=== PATIENT | female | born 1980 | race Caucasian/White ===

== ENCOUNTER 2017-08-29 22:10 | Emergency (ER) | payer OTHER ==
[2017-08-29 22:19] VITALS: BP 122/58; PULSE 109; TEMP 98; BMI 32.5
--- NOTE | 2017-08-29 22:44 | PDOC ---
History of Present Illness - General Chief Complaint: Edema Stated Complaint: SWOLLEN GLANDS Time Seen by Provider: 08/29/17 22:34 History Source: Patient Exam Limitations: No Limitations - History of Present Illness Initial Comments: 08/29/17 22:49 36-year-old female with no medical history presents to the emergency department complaining of swelling to the left cervical glands with subjective fever 3 days. Patient was seen at the urgent care center 3 days ago. Patient had strep and mono tested and were both negative. Patient was placed on Ceftin and was told to take an NSAID. Patient presents today for a second opinion. Patient states patient denies headache, dizziness, lightheadedness, nausea, vomiting, chills, sore throat, chest pain, shortness of breath. Past History - Past Medical History Allergies/Adverse Reactions: Allergies Allergy/AdvReac Type Severity Reaction Status Date / Time No Known Allergies Allergy Verified 08/29/17 22:15 Home Medications: Ambulatory Orders Cefdinir [Omnicef Suspension] 250 mg PO ASDIR 08/29/17 COPD: No - Suicide/Smoking/Psychosocial Hx Smoking Status: Yes Smoking History: Current every day smoker Number of Cigarettes Smoked Daily: 10 Information on smoking cessation initiated: No Review of Systems - Review of Systems Able to Perform ROS?: Yes Comments:: 08/29/17 22:50 CONSTITUTIONAL: Absent: fever, chills, diaphoresis, generalized weakness, malaise, loss of appetite HEENT: left cervical glands/swollen Absent: rhinorrhea, nasal congestion, throat pain, throat swelling, difficulty swallowing, mouth swelling, ear pain, eye pain, visual Changes CARDIOVASCULAR: Absent: chest pain, loss of consciousness, palpitations, irregular heart rate, peripheral edema RESPIRATORY: Absent: cough, shortness of breath, dyspnea with exertion, orthopnea, wheezing, stridor, hemoptysis GASTROINTESTINAL: Absent: abdominal pain, abdominal distension, nausea, vomiting, diarrhea, constipation, melena, hematochezia GENITOURINARY: Absent: dysuria, frequency, urgency, hesitancy, hematuria, flank pain, genital pain MUSCULOSKELETAL: Absent: myalgia, arthralgia, joint swelling SKIN: Absent: rash, itching, pallor HEMATOLOGIC/IMMUNOLOGIC: Absent: easy bleeding, easy bruising, lymphadenopathy, frequent infections ENDOCRINE: Absent: unexplained weight gain, unexplained weight loss, heat intolerance, cold intolerance NEUROLOGIC: Absent: headache, focal weakness or paresthesias, dizziness, unsteady gait, seizure, mental status changes, bladder or bowel incontinence PSYCHIATRIC: Absent: anxiety, depression, suicidal or homicidal ideation, hallucinations. Is the patient limited German proficient: No *Physical Exam - Vital Signs Last Vital Signs Temp Pulse Resp BP Pulse Ox 98 F 109 H 18 122/58 99 08/29/17 22:16 08/29/17 22:16 08/29/17 22:16 08/29/17 22:16 08/29/17 22:16 - Physical Exam Comments: 08/29/17 22:50 GENERAL: Well developed, well nourished. Awake and alert. No acute distress. HEENT: Normocephalic, atraumatic. PERRLA, EOMI. No conjunctival pallor. Sclera are non- icteric. Moist mucous membranes. Oropharynx is clear. NECK: +swelling to cervical glands/left Supple. Full ROM. No JVD. Carotid pulses 2+ and symmetric, without bruits. No thyromegaly. No lymphadenopathy. CARDIOVASCULAR: Regular rate and rhythm. No murmurs, rubs, or gallops. Distal pulses are 2+ and symmetric. PULMONARY: No evidence of respiratory distress. Lungs clear to auscultation bilaterally. No wheezing, rales or rhonchi. ABDOMINAL: Soft. Non-tender. Non-distended. No rebound or guarding. No organomegaly. Normoactive bowel sounds. MUSCULOSKELETAL Normal range of motion at all joints. No bony deformities or tenderness. No CVA tenderness. EXTREMITIES: No cyanosis. No clubbing. No edema. No calf tenderness. SKIN: Warm and dry. Normal capillary refill. No rashes. No jaundice. NEUROLOGICAL: Alert, awake, appropriate. Cranial nerves 2-12 intact. No deficits to light touch and temperature in face, upper extremities and lower extremities. No motor deficits in the in face, upper extremities and lower extremities. Normoreflexic in the upper and lower extremities. Normal speech. Toes are down- going bilaterally. Gait is normal without ataxia. *DC/Admit/Observation/Transfer Diagnosis at time of Disposition: Glands swollen - Discharge Dispostion Disposition: HOME Condition at time of disposition: Stable Admit: No - Referrals Referrals: Ruthy Hyde MD [Primary Care Provider] - Taisha Josue MD [Staff Physician] - - Patient Instructions Printed Discharge Instructions: DI for Lymphangitis-Adult Additional Instructions: Take Motrin as needed every 8 hours Continue your antibotics as prescribed at the Urgent care Return to the ER for severe/persistent/worsening symptoms Follow up with Infectious disease within 48 hours - Post Discharge Activity
== END 2017-08-29 22:46 | disposition home or self-care (01) ==
LOC: JERFT 22:10
DX: R59.0 Localized enlarged lymph nodes (principal)
CPT/HCPCS: 99281-25

== ENCOUNTER 2023-05-27 16:52 | Emergency (ER) | payer OTHER ==
[2023-05-27 16:59] VITALS: BP 116/72; PULSE 95; RESP 18; TEMP 98.3; BMI 29.5
== END 2023-05-27 18:50 | disposition left against medical advice (07) ==
LOC: JER 16:52
DX: F41.9 Anxiety disorder, unspecified (principal); R06.02 Shortness of breath; R42 Dizziness and giddiness; R00.2 Palpitations
CPT/HCPCS: 93005; 93010

== ENCOUNTER 2023-11-08 21:28 | Emergency (ER) | payer OTHER ==
[2023-11-08 21:49] VITALS: BP 107/62; PULSE 106; RESP 18; TEMP 98.2; BMI 32.5
[2023-11-08] MEDS ORDERED: KETOROLAC TROMETHAMINE 30 MG/1 ML VIAL ONE (22:32)
[2023-11-08] MEDS: KETOROLAC TROMETHAMINE 30 MG/1 ML VIAL IM ONE (22:40)
== END 2023-11-08 22:43 | disposition home or self-care (01) ==
LOC: JERFT 21:28
PROC: 3E0233Z Introduction of Anti-inflammatory into Muscle, Percutaneous Approach (ICD-10-PCS; principal; 2023-11-08)
DX: M79.671 Pain in right foot (principal); X50.9XXA Other and unspecified overexertion or strenuous movements or postures, initial encounter
CPT/HCPCS: 73630-TC-RT-FY; 99284-25